=== PATIENT | female | born 1970 | race Caucasian/White ===

== ENCOUNTER 2017-08-11 06:17 | Observation (INO) | END 2017-08-12 18:55 | disposition home or self-care (01) ==

== ENCOUNTER 2018-09-02 22:51 | Emergency (ER) | payer BC ==
[~2018-09-02] VITALS: Wt 61.9 kg
[~2018-09-02 22:51] MED LIST: BISA5TAB6 PO; DOCU-216 PO; METR500T PO
[2018-09-03] MEDS ORDERED: morphine 4 MG/ML VIAL IV STA (03:38)
[2018-09-03] MEDS ORDERED: ONDANSETRON 4 MG INJ IV STA (03:38)
--- NOTE | 2018-09-03 03:38 | ERD ---
ER Documentation Chief Complaint Chief Complaint diffused abd pain/bloating x3days worse today HPI This is a 48-year-old female who presents here in the emergency department with complaints of diffuse abdominal pain, bloating for about 3 days but got worse today. Nauseated but no vomiting. Pain was described as sharp and worse with movement. Stated that she had one normal bowel movement today. LMP: 1.5 years ago. A0. Denies headache, head injury, loss of consciousness, dizziness, neck pain, neck stiffness, throat pain, difficulty swallowing, difficulty breathing lying flat, shoulder pain, chest pain, back pain, vomiting, constipation, diarrhea, urinary symptoms, or possibility being , loss of bowel and bladder control, trauma, injury, falls, difficulty walking due to pain, numbness or tingling sensation, calf pain, recent travel, recent major surgery in the last 3 weeks, calf pain, recent long travel, recent exposure to any illness, recent antibiotic use in the last 3 months, fever, chills, seizures. Past medical history: Surgical history: Social: Denies smoking, use of alcoholic beverages, use of illegal drugs. ROS All systems reviewed and are negative except as per history of present illness. Medications Home Meds Active Scripts Simethicone (Simethicone) 125 Mg Capsule, 125 MG PO Q6 PRN for DISTENSION/GAS/BLOATING, #20 CAP Prov:ALEJANDRINA THORNTON F 09/03/18 Omeprazole* (Omeprazole*) 40 Mg Capsule., 40 MG PO DAILY, #30 CAP Prov:PASILABANAMYAR F 09/03/18 Ondansetron Hcl* (Zofran*) 4 Mg Tablet, 4 MG PO Q8H PRN for NAUSEA AND/OR VOMITING, #30 TAB Prov:PASILABANAMYAR F 09/03/18 Acetaminophen* (Tylophen*) 500 Mg Capsule, 1 CAP PO Q6H PRN for PAIN AND OR E LEVATED TEMP, #20 CAP Prov:PASILABANKLAR F 09/03/18 Bisacodyl* (Bisacodyl*) 5 Mg Tablet., 5 MG PO DAILY PRN for CONSTIPATION, #30 TAB Prov:LEXIE KIRKLAND MD 08/12/17 Docusate Sodium (Dok) 100 Mg Capsule, 100 MG PO Q12H PRN for CONSTIPATION, #30 CAP Prov:LEXIE KIRKLAND MD 08/12/17 Metronidazole* (Flagyl*) 500 Mg Tablet, 500 MG PO TID for 7 Days, #21 TAB Prov:LEXIE KIRKLAND MD 08/12/17 Allergies Allergies: Coded Allergies: No Known Allergy (Unverified , 08/11/17) PMhx/Soc History of Surgery: Yes () Anesthesia Reaction: Yes Hx Neurological Disorder: No Hx Respiratory Disorders: No Hx Cardiac Disorders: No Hx Psychiatric Problems: No Hx Miscellaneous Medical Probl: No Hx Alcohol Use: No Hx Substance Use: No Hx Tobacco Use: No Physical Exam Vitals Vital Signs Date Temp Pulse Resp B/P (MAP) Pulse Ox O2 O2 Flow FiO2 Time Delivery Rate 09/03/18 98.6 68 18 118/57 98 Room Air 05:54 (77) 09/02/18 98.6 76 20 142/85 100 22:58 (104) Physical Exam Const: No acute distress Head: Atraumatic Eyes: Normal Conjunctiva ENT: Normal External Ears, Nose and Mouth. Neck: Full range of motion. No meningismus. Resp: Clear to auscultation bilaterally Cardio: Regular rate and rhythm, no murmurs Abd: Soft, non distended. Normal bowel sounds. Has epigastric tenderness to palpation. Negative [place] sign (heel jar test). Negative psoas sign. Negative Rovsing sign. No CVA tenderness. Skin: No petechiae or rashes. Examined with female kennel technician. No vesicular lesions. Color appears normal for ethnicity. No diaphoresis. No skin tenting. No signs of severe dehydration. Back: No midline or flank tenderness Ext: No cyanosis, or edema Neur: Awake and alert. No neurological deficits. Psych: Normal Mood and Affect Result Diagram: 09/03/18 0352 09/03/18 0352 Results 24 hrs Laboratory Tests Test 09/03/18 03:52 09/03/18 04:02 09/03/18 04:22 White Blood Count 9.5 10^3/ul Red Blood Count 4.72 10^6/ul Hemoglobin 14.5 g/dl Hematocrit 43.1 % Mean Corpuscular Volume 91.3 fl Mean Corpuscular Hemoglobin 30.7 pg Mean Corpuscular 33.6 g/dl Hemoglobin Concent Red Cell Distribution Width 12.5 % Platelet Count 268 10^3/UL Mean Platelet Volume 11.0 fl Immature Granulocytes % 0.600 % Neutrophils % 70.3 % Lymphocytes % 23.4 % Monocytes % 4.8 % Eosinophils % 0.4 % Basophils % 0.5 % Nucleated Red Blood Cells % 0.0 /100WBC Immature Granulocytes # 0.060 10^3/ul Neutrophils # 6.7 10^3/ul Lymphocytes # 2.2 10^3/ul Monocytes # 0.5 10^3/ul Eosinophils # 0.0 10^3/ul Basophils # 0.1 10^3/ul Nucleated Red Blood Cells # 0.0 10^3/ul Urine Color STRAW Urine Clarity CLEAR Urine pH 8.0 Urine Specific [place] 1.005 Urine Ketones NEGATIVE mg/dL Urine Nitrite NEGATIVE mg/dL Urine Bilirubin NEGATIVE mg/dL Urine Urobilinogen NEGATIVE mg/dL Urine Leukocyte Esterase TRACE Real/ul Urine Microscopic RBC 1 /HPF Urine Microscopic WBC 2 /HPF Urine Yeast (Budding) FEW /HPF Urine Hemoglobin NEGATIVE mg/dL Urine Glucose NEGATIVE mg/dL Urine Total Protein NEGATIVE mg/dl Sodium Level 144 mmol/L Potassium Level 4.5 mmol/L Chloride Level 104 mmol/L Carbon Dioxide Level 29 mmol/L Anion Gap 11 Blood Urea Nitrogen 10 mg/dl Creatinine 0.46 mg/dl Est Glomerular Filtrat > 60 mL/min Rate mL/min Glucose Level 122 mg/dl Calcium Level 9.9 mg/dl Total Bilirubin 0.6 mg/dl Direct Bilirubin 0.00 mg/dl Indirect Bilirubin 0.6 mg/dl Aspartate Amino Transf (AST/SGOT) 39 IU/L Alanine 30 IU/L Aminotransferase (ALT/SGPT) Alkaline Phosphatase 85 IU/L Troponin I < 0.012 ng/ml Total Protein 8.9 g/dl Albumin 5.0 g/dl Globulin 3.90 g/dl Albumin/Globulin Ratio 1.28 Amylase Level 130 U/L Lipase 127 U/L POC Beta HCG, Qualitative NEGATIVE Prothrombin Time 12.5 Sec Prothrombin Time Ratio 1.0 INR International 0.92 Normalized Ratio Activated Partial Thromboplast 31.3 Sec Time Current Medications Medications Dose Sig/Cecily Start Time Status Last (Trade) Ordered Route PRN Stop Time Admin Dose Reason Admin Ondansetron 4 mg ONCE STAT 09/03/18 DC 09/03/18 HCl (Zofran IV 03:38 04:00 Inj) 09/03/18 03:42 Morphine 4 mg ONCE STAT 09/03/18 DC Sulfate IV 03:38 (morphine) 09/03/18 03:42 Sodium 1,000 ml @ Q1H ONCE 09/03/18 DC 09/03/18 Chloride 1,000 mls/hr IV 04:00 04:00 09/03/18 04:59 Procedures/MDM Diagnostic tests: EKG: Normal sinus rhythm with a ventricular rate of 72 bpm. No STEMI. Read by supervising physician. POC urine : Negative. Urinalysis: Reviewed. Culture urine: Sent. Blood works: Reviewed. Ultrasound of the gallbladder: Study slightly limited by bowel gas. No definite acute abnormality. CT of the abdomen and pelvis: 1. No acute abnormalities are appreciated. 2. Mild fatty infiltration of the liver is suggested. 3. 1.5 cm medial right breast nodular density appears stable. Stability hurst ggests a nonaggressive process. Mammographic and/or ultrasound correlation is suggested. Treatment: Saline lock. Normal saline IV bolus. Morphine IV. Zofran IV. Re-evaluation: No episode of emesis here in the emergency department. Negative Bearden sign. Negative Dalia sign (heel jar test). Negative psoas sign. Negative Rovsing sign. Able to jump 10 times without developing lower abdominal pain. Differential diagnosis I have low suspicion for pancreatitis, cholecystitis, diverticulitis, diverticulitis with abscess, bowel obstruction, appendicitis, appendicitis with abscess, ruptured appendicitis, pyelonephritis, septic stone, obstructing kidney stones, AAA. This case was discussed with my supervising physician, Dr. Abraham Schuster who agreed with my medical decision making. Final diagnosis: Abdominal pain. Prescription: Tylenol. Zofran. Omeprazole. Simethicone. Follow-up with PCP in the next 24-48 hours. Follow-up with your machine zipper trimmer in the next 24 to 48 hours. Have your machine zipper trimmer do a mammogram in the next few weeks. Come back here in the emergency department for any new symptoms or any worsening symptoms. All questions and concerns were answered. Patient and family members verbalized understanding and agreed with plan of care. Hemodynamically stable on discharge. Departure Diagnosis: Primary Impression: Abdominal pain Condition: Stable Additional Instructions: Follow-up with PCP in the next 24-48 hours. Follow-up with your machine zipper trimmer in the next 24 to 48 hours. Have your machine zipper trimmer do a mammogram in the next few weeks. Come back here in the emergency department for any new symptoms or any worsening symptoms. ALEJANDRINA THORNTON September 03, 2018 03:38
[2018-09-03] MEDS ORDERED: SOD CHLORIDE 0.9% 1,000 ML IV ONE (04:00)
[2018-09-03] MEDS ORDERED: ACET500C5 PO (05:33)
[2018-09-03] MEDS ORDERED: ONDA4TAB8 PO (05:33)
[2018-09-03] MEDS ORDERED: OMEP40CA6 PO (05:34)
[2018-09-03] MEDS ORDERED: SIME125C69 PO (05:35)
[2018-09-03 05:54] VITALS: BP 118/57; PULSE 68; RESP 18
== END 2018-09-03 05:55 | disposition home or self-care (01) ==
LOC: FTE 22:51
DX: R10.13 Epigastric pain (principal)
CPT/HCPCS: 74176; 76705; 80053; 81001; 81025; 82150; 83690; 84484; 85025; 85610; 85730; 87086; J2405; J7030; 36415; 96374; 96375; J2270